=== PATIENT | female | born 1970 | race Caucasian/White ===

== ENCOUNTER 2021-05-21 12:34 | Emergency (ER) | payer MEDICARE, MEDICAID ==
[~2021-05-21] VITALS: Ht 170.2 cm; Wt 108.9 kg
[~2021-05-21 12:34] MED LIST: AMLODIPINE; BENADRYL25 MG PO; CALAMINE180 ML TP; CELEXA; CLEOCIN HCL300 MG PO; CORTAID28 GM TP; COUMADIN 10MG T10 M1; COUMADIN 4 MG TA4 M1 PO; EFFEXOR XR75 MG PO; ERY-TAB500 MG PO; GLUCOPHAGE1000 MG PO; GLUCOPHAGE500 MG PO; KEFLEX500 MG PO; LISINOPRIL-HCT1 EACH PO; MOBIC15 MG PO; NORCO 5-325 TA1 EACH PO; NYSTATIN 1100000 U/M PO; PANTOPRAZOLE SO40 M1 PO; PERCOCET 5-3251 EACH PO; PLAVIX 75 MG TA75 MG PO; PREDNISONE 20 M20 M1 PO; PROAIR HFA8.5 GM INH; SIMVASTATIN40 MG PO; SYMBICORT160 MCG/4. INH; TRAMADOL 50 MG50 MG PO; VENLAFAXIN75 MG/1 T2 PO; VENTOLIN HFA 1818 GM INH; VITAMIN D31000 UNI2; ZANTAC 150MG T150 MG PO; ZOCOR; ZPAK PO
[2021-05-21 13:35] LABS: ABSOLUTE EOSINOPHILS 0.1 thou/uL (0.0-0.7); ABSOLUTE LYMPHOCYTES 1.3 thou/uL (0.8-5.3); ABSOLUTE MONOCYTES 0.2 thou/uL (0.0-1.2); ABSOLUTE NEUTROPHILS 2.4 thou/uL (1.6-8.1); BASOPHILS 0.2 %; EOSINOPHILS 3.3 %; HEMOGLOBIN 20.2 gm/dL (12.0-15.0); LYMPHOCYTES 33.3 %; MCH 27.7 pg (26.0-34.0); MCHC 32.8 g/dL (28.0-37.0); MCV 84.3 fL (80.0-100.0); MONOCYTES 4.4 %; MPV 7.9 fl. (7.2-11.1); NUCLEATED RBCS 0 /100WBC; PLATELET COUNT* 128 thou/uL (150-400); POLYS 58.8 %; RBC 7.28 mil/uL (4.20-5.00); RDW-CV 16.3 % (10.5-14.5)
[2021-05-21 13:40] LABS: CREATININE 0.9 mg/dL (0.6-1.3); POTASSIUM 3.9 mmol/L (3.5-5.1)
[2021-05-21 13:43] LABS: APTT 45.9 Seconds (25.0-31.3); INR 2.2; PROTIME 22.3 Seconds (9.20-11.50)
[2021-05-21 13:44] LABS: ALBUMIN 3.1 g/dL (3.4-5.0); HEMATOCRIT 61.4 % (37.0-47.0); TOTAL BILIRUBIN 0.2 mg/dL (<0.1-1.0); TOTAL PROTEIN 7.1 g/dL (6.4-8.2)
[2021-05-21 15:35] VITALS: BP 99/40
== END 2021-05-21 15:36 | disposition home or self-care (01) ==
LOC: M.ERS 12:34
PROVIDERS: Family Medicine
DX: R51.9 Headache, unspecified (principal); I10 Essential (primary) hypertension; E11.9 Type 2 diabetes mellitus without complications; Z86.73 Personal history of transient ischemic attack (TIA), and cerebral infarction without residual deficits